=== PATIENT | female | born 1980 | race Caucasian/White ===

== ENCOUNTER 2018-01-25 02:45 | Emergency (ER) | payer SELFPAY ==
[~2018-01-25] VITALS: Ht 172.7 cm; Wt 61.2 kg
[2018-01-25 02:50] VITALS: BP 141/75
--- NOTE | 2018-01-25 02:54 | NUR ---
PT. AMBULATED TO ER BED 12
--- NOTE | 2018-01-25 03:00 | NUR ---
Pt presents to ED with c/o generalized itching and pain to red area's of right forearm and left upper leg. Pt states she has bed bugs at home. Right forearm redness, 4 cm round, tender to palpation, warm to touch. Left upper leg redness, edema, 6cm round, warm to touch and tender to palpation. No drainaged noted. Pt aslo c/o burning with urination. VSS. Pain described as 6/10. ER MD aware. Continue to monitor.
[2018-01-25 03:26] LABS: BARBITURATE, URINE NEG. ng/ml (NEG <=200); BENZODIAZEPINE, URINE NEG. ng/mL (NEG <=200); CANNABINOID, URINE NEG. ng/mL (NEG <=50); COCAINE, URINE POS. ng/mL (NEG <=300); OPIATE, URINE POS. ng/mL (NEG <=2000); PHENCYCLIDINE SCREEN,URINE NEG. ng/mL (NEG <=25)
[2018-01-25 03:50] VITALS: BP 141/75
--- NOTE | 2018-01-25 03:50 | NUR ---
Patient discharged with v/s stable with decreased pain. Written and verbal after care instructions given and explained. Patient alert, oriented and verbalized understanding of instructions. Ambulatory with steady gait. All questions addressed prior to discharge. ID band removed. Patient advised to follow up with PMD. Rx of Naprosyn, Bactrim, and Permethrin given. Patient educated on indication of medication including possible reaction and side effects. Opportunity to ask questions provided and answered.
== END 2018-01-25 03:50 | disposition home or self-care (01) ==
LOC: MED 02:45
DX: L03.116 Cellulitis of left lower limb (principal); L29.9 Pruritus, unspecified; F19.90 Other psychoactive substance use, unspecified, uncomplicated; F17.210 Nicotine dependence, cigarettes, uncomplicated
CPT/HCPCS: 80305; 81025; 99285